=== PATIENT | male | born 1995 | race Caucasian/White ===

== ENCOUNTER 2017-06-02 13:56 | Emergency (ER) | payer OTHER ==
[~2017-06-02] VITALS: Ht 185.4 cm; Wt 92.9 kg
[2017-06-02 14:00] VITALS: BP 148/84; PULSE 68; RESP 18; TEMP 98.1; O2SAT 98
--- NOTE | 2017-06-02 15:22 | RADRPT ---
EXAM DATE/TIME: 06/02/2017 15:10 [place] COMPARISON: No previous studies available for comparison. INDICATIONS : Chest pain today. MEDICAL HISTORY : None. SURGICAL HISTORY : None. ENCOUNTER: Initial ACUITY: 1 day PAIN SCORE: 5/10 LOCATION: Bilateral chest FINDINGS: A single view of the chest demonstrates the lungs to be symmetrically aerated without evidence of mas s, infiltrate or effusion. The cardiomediastinal contours are unremarkable. Osseous structures are intact. CONCLUSION: Normal examination for a patient of this age. Rashel Tavares MD on June 02, 2017 at 15:20 Board Certified Radiologist. This report was verified electronically.
[2017-06-02] MEDS ORDERED: MEDR4PAK PO (15:41)
--- NOTE | 2017-06-02 15:41 | PD ---
HPI Chief Complaint: ENT Complaint Time Seen by Provider: 15:00 Travel History International Travel<30 days: No Contact w/Intl Traveler<30days: No Traveled to known affect area: No History of Present Illness HPI This is a 22-year-old male presented the ER complaining of cough and chest pain when he coughs for the last 2 days. Patient states that he was at work and they were spraying bug remover and since then he started having cough and pain on his chest when he coughs. Nothing comes out when he coughs, there is no fever or chills or runny nose. PFSH Past Medical History Medical History: Denies Significant Hx Asthma: No Blood Disorders: No Anxiety: No Depression: No Heart Rhythm Problems: No Cancer: No Cardiovascular Problems: No High Cholesterol: No Chemotherapy: No Chest Pain: No Developmental Delay: No Diabetes: No Diminished Hearing: No Endocrine: No Gastrointestinal Disorders: No Genitourinary: No Hypertension: No Implanted Vascular Access Dvce: No Musculoskeletal: No Neurologic: No Psychiatric: No Reproductive: No Respiratory: No Immunizations Current: Yes Radiation Therapy: No Sleep Apnea: No Thyroid Disease: No Influenza Vaccination: No Past Surgical History Appendectomy: Yes Other Surgery: No Social History Alcohol Use: No Tobacco Use: No Substance Use: No Allergies-Medications (Allergen,Severity, Reaction): Coded Allergies: No Known Allergies (Verified Adverse Reaction, Unknown, 06/02/17) Reported Meds & Prescriptions Reported Meds & Active Scripts Active No Active Prescriptions or Reported Medications Review of Systems Except as stated in HPI: all other systems reviewed are Neg Physical Exam Narrative GENERAL: Alert oriented 3 no acute distress SKIN: Focused skin assessment warm/dry. HEAD: Atraumatic. Normocephalic. EYES: Pupils equal and round. No scleral icterus. No injection or drainage. ENT: No nasal bleeding or discharge. Mucous membranes pink and moist. NECK: Trachea midline. No JVD. CARDIOVASCULAR: Regular rate and rhythm. No murmur appreciated. RESPIRATORY: No accessory muscle use. Clear to auscultation. Breath sounds equal bilaterally. GASTROINTESTINAL: Abdomen soft, non-tender, nondistended. Hepatic and splenic margins not palpable. MUSCULOSKELETAL: No obvious deformities. No clubbing. No cyanosis. No edema. NEUROLOGICAL: Awake and alert. No obvious cranial nerve deficits. Motor grossly within normal limits. Normal speech. PSYCHIATRIC: Appropriate mood and affect; insight and judgment normal. Data Data Last Documented VS Vital Signs Date Time Temp Pulse Resp B/P (MAP) Pulse Ox O2 Delivery O2 Flow Rate FiO2 06/02/17 14:00 98.1 68 18 148/84 (105) 98 Orders Orders Chest, Single Ap (06/02/17 ) MDM Medical Decision Making Medical Screen Exam Complete: Yes Emergency Medical Condition: Yes Differential Diagnosis Bronchitis, pneumonitis, allergic reaction. Narrative Course This is a 22-year-old male presented the ER complaining of cough after inhaling bug remover. Patient states that has been complaining of cough and pleuritic chest pain. There is no runny nose or any inflammatory symptoms. I will give the patient a course of steroids and I recommend that he follows up with his primary care physician. Diagnosis Primary Impression: Bronchitis Additional Instructions: Follow-up with the primary care physician return to ER if symptoms change or do not improve. Scripts Methylprednisolone Dosepak (Medrol Dosepak) 4 Mg Dspk 4 MG PO DIRECTED, #1 DSPK 0 Refills Per Pharmacist direction Prov: Jared Caceres MD 06/02/17 Disposition: 01 DISCHARGE HOME Condition: Stable Jared Caceres MD Jun 02, 2017 15:41
[2017-06-02 15:52] VITALS: BP 147/63; PULSE 71; RESP 18; O2SAT 97
== END 2017-06-02 15:56 | disposition home or self-care (01) ==
LOC: PHED 13:56
DX: J40 Bronchitis, not specified as acute or chronic (principal)
CPT/HCPCS: 71045; 99283